=== PATIENT | male | born 1970 | race African-American/Black ===

== ENCOUNTER 2017-08-21 21:58 | Emergency (ER) | payer OTHER ==
[~2017-08-21] VITALS: Ht 185.4 cm; Wt 106.8 kg
[2017-08-21] MEDS ORDERED: BACITRACIN 0.9 GM PACKET OINTMENT TP ONE (23:30)
[2017-08-21 23:55] VITALS: BP 130/76
== END 2017-08-22 00:41 | disposition home or self-care (01) ==
LOC: EMS 22:02
DX: S91.031A Puncture wound without foreign body, right ankle, initial encounter (principal); E78.00 Pure hypercholesterolemia, unspecified; E78.5 Hyperlipidemia, unspecified; X58.XXXA Exposure to other specified factors, initial encounter; Y93.89 Activity, other specified; Y92.89 Other specified places as the place of occurrence of the external cause; Y99.8 Other external cause status
CPT/HCPCS: 99283